=== PATIENT | female | born 1995 | race Caucasian/White ===

== ENCOUNTER → 2022-09-17 | Outpatient (REF) | LOC: M LABSMTC 10:31 | PROVIDERS: ATTEND Family Medicine | DX: Z11.52 Encounter for screening for COVID-19 (principal) ==

== ENCOUNTER 2022-11-30 00:54 | Day surgery (SDC) | payer OTHER, SELFPAY ==
[2022-11-30] VITALS (10 sets, daily range): BP systolic 97–126; BP diastolic 63–75
[~2022-11-30] VITALS: Ht 165.1 cm; Wt 110.6 kg
[2022-11-30] MEDS ORDERED: MORPHINE 4 MG/ML 1ML VIAL IV PRN (01:05)
[2022-11-30] MEDS ORDERED: NORCO, ANEXSIA 5/325MG TABLET (HYDROcodone/ACETAMINOPHEN) PO PRN (01:05)
[2022-11-30] MEDS ORDERED: ONDANSETRON 4MG 2ML VIAL IV PRN ×2 (01:05→12:45)
[2022-11-30] MEDS ORDERED: HOME MED LIST COMPLETE! XX SCH (01:40)
[2022-11-30] MEDS: NS 1,000 ML IV SCH ×3 (01:48→17:05)
[2022-11-30] MEDS: NORCO, ANEXSIA 5/325MG TABLET (HYDROcodone/ACETAMINOPHEN) PO PRN ×3 (09:44→22:29)
[2022-11-30] MEDS ORDERED: ROCURONIUM BROMIDE 50MG/5ML VIAL As Ordered ONE (10:27)
[2022-11-30] MEDS ORDERED: LIDOCAINE 2% 100MG/5ML SDV (FOR ANES.) As Ordered ONE (10:27)
[2022-11-30] MEDS ORDERED: SUGAMMADEX SODIUM 500 MG/5 ML VIAL (BRIDION) As Ordered ONE (10:28)
[2022-11-30] MEDS ORDERED: ONDANSETRON 4MG 2ML VIAL As Ordered ONE (10:28)
[2022-11-30] MEDS ORDERED: KETOROLAC 60MG 2ML VIAL As Ordered ONE (10:28)
[2022-11-30] MEDS ORDERED: ACETAMINOPHEN 1000MG 100ML IV BAG As Ordered ONE (10:28)
[2022-11-30] MEDS ORDERED: propofoL 200 MG/20 ML VIAL As Ordered ONE (10:28)
[2022-11-30] MEDS ORDERED: fentaNYL 100 MCG/2 ML INJECTION As Ordered ONE (10:30)
[2022-11-30] MEDS ORDERED: MIDAZOLAM INJ 2MG/2ML VIAL As Ordered ONE (10:30)
[2022-11-30] MEDS ORDERED: BUPIVACAINE HCL 0.25% 30ML VIAL As Ordered ONE (10:37)
[2022-11-30] MEDS ORDERED: LIDOCAINE 1% SDV 30ML VIAL As Ordered ONE (10:37)
[2022-11-30] MEDS ORDERED: ZOSYN 3.375GM VIAL As Ordered ONE (11:06)
[2022-11-30] MEDS ORDERED: MEPERIDINE 25 MG/ML 1ML VIAL IV PRN (12:45)
[2022-11-30] MEDS ORDERED: LR 1,000 ML IV SCH (12:45)
[2022-11-30] MEDS ORDERED: PERCOCET 5MG/325MG TAB PO PRN (12:45)
[2022-11-30] MEDS ORDERED: fentaNYL 100 MCG/2 ML INJECTION IV PRN (12:45)
[2022-11-30] MEDS ORDERED: METOCLOPRAMIDE INJ 10MG/2ML VIAL IV PRN (12:50)
[2022-11-30] MEDS: metroNIDAZOLE (FLAGYL) 500MG TABLET PO SCH ×2 (13:27→21:27)
[2022-11-30] MEDS: LevoFLOXacin 750 MG TABLET PO SCH (13:27)
[2022-12-01] MEDS ORDERED: UNRESOLVED CLARIFICATION ENTRY XX SCH (00:01)
[2022-12-01] MEDS: NORCO, ANEXSIA 5/325MG TABLET (HYDROcodone/ACETAMINOPHEN) PO PRN (05:47)
[2022-12-01] MEDS: LevoFLOXacin 750 MG TABLET PO SCH (05:47)
[2022-12-01] MEDS: metroNIDAZOLE (FLAGYL) 500MG TABLET PO SCH (05:47)
[2022-12-01 06:00] VITALS: BP 113/74
[2022-12-01 06:47] LABS: BASO % 0.3 % (0.0-1.0); EOS % 0.3 % (0.0-3.0); HEMATOCRIT 34.2 % (36.0-47.0); HEMOGLOBIN 10.8 g/dl (12.0-15.5); MEAN CORPUSCULAR HEMOGLOBIN 29.1 pg (27.0-33.0); MEAN CORPUSCULAR HGB CONC 31.6 g/dl (32.0-36.5); MEAN CORPUSCULAR VOLUME 92.2 fl (80.0-96.0); MONO # 0.7 10^3/uL (0.0-0.8); MONO % 5.8 % (2.0-8.0); NEUTROPHILS # 8.9 10^3/uL (1.5-8.5); PLATELET COUNT, AUTOMATED 281 10^3/uL (150-450); RED BLOOD COUNT 3.71 10^6/uL (4.00-5.40); WHITE BLOOD COUNT 11.7 10^3/uL (4.0-10.0)
[2022-12-01 07:09] LABS: BLOOD UREA NITROGEN 9 MG/DL (9-23); CALCIUM LEVEL 7.9 MG/DL (8.5-10.1); CARBON DIOXIDE LEVEL 25 MMOL/L (20-31); CHLORIDE LEVEL 108 MMOL/L (98-107); CREATININE FOR GFR 0.67 MG/DL (0.55-1.30); GLOMERULAR FILTRATION RATE > 60.0 (>60); GLUCOSE, FASTING 93 MG/DL (60-100); POTASSIUM SERUM 3.8 MMOL/L (3.5-5.1); SODIUM LEVEL 142 MMOL/L (136-145)
[2022-12-01] MEDS ORDERED: METR-265 PO (13:00)
[2022-12-01] MEDS ORDERED: HYDR-3715 PO (13:00)
[2022-12-01] MEDS ORDERED: LEVO1TAB40 PO (13:00)
== END 2022-12-01 13:45 | disposition home or self-care (01) ==
LOC: M SDC 00:54 → M MS5PR 00:55 → M SDC 01:01
PROVIDERS: ATTEND Surgery
DX: K35.891 Other acute appendicitis without perforation, with gangrene (principal); K35.32 Acute appendicitis with perforation, localized peritonitis, and gangrene, without abscess; E66.9 Obesity, unspecified
CPT/HCPCS: 36415; 44970; 80048; 85025; 88304; J1100; J1885; J2250; J2405; J2543; J3010; S0020

== ENCOUNTER → 2022-12-22 | Outpatient (CLI) | payer OTHER ==
[~2022-12-22] MED LIST: HYDR-3715 PO; LEVO1TAB40 PO; METR-265 PO
[2022-12-22 14:52] LABS: BASO # 0.1 10^3/uL (0.0-0.2); BASO % 0.4 % (0.0-1.0); EOS # 0.1 10^3/uL (0.0-0.5); EOS % 0.9 % (0.0-3.0); HEMOGLOBIN 12.1 g/dl (12.0-15.5); LYMPH # 3.6 10^3/uL (1.5-5.0); LYMPH % 31.8 % (24.0-44.0); MEAN CORPUSCULAR HEMOGLOBIN 29.7 pg (27.0-33.0); MEAN CORPUSCULAR HGB CONC 32.7 g/dl (32.0-36.5); MEAN CORPUSCULAR VOLUME 90.7 fl (80.0-96.0); MONO # 0.7 10^3/uL (0.0-0.8); MONO % 6.5 % (2.0-8.0); NEUTROPHILS # 6.7 10^3/uL (1.5-8.5); NEUTROPHILS % 60.1 % (36.0-66.0); PLATELET COUNT, AUTOMATED 381 10^3/uL (150-450); RED BLOOD COUNT 4.08 10^6/uL (4.00-5.40); WHITE BLOOD COUNT 11.2 10^3/uL (4.0-10.0)
[2022-12-22 15:17] LABS: ALBUMIN 3.7 G/DL (3.2-5.2); ALKALINE PHOSPHATASE 89 U/L (46-116); ALT/SGPT 36 U/L (7.0-40); AST/SGOT 18 U/L (<34); BILIRUBIN,TOTAL 0.3 MG/DL (0.3-1.2); BLOOD UREA NITROGEN 12 MG/DL (9-23); CALCIUM LEVEL 9.2 MG/DL (8.5-10.1); CARBON DIOXIDE LEVEL 27 MMOL/L (20-31); CHLORIDE LEVEL 107 MMOL/L (98-107); CREATININE FOR GFR 0.72 MG/DL (0.55-1.30); GLOMERULAR FILTRATION RATE > 60.0 (>60); GLUCOSE, FASTING 90 MG/DL (60-100); SODIUM LEVEL 139 MMOL/L (136-145); TOTAL PROTEIN 7.2 G/DL (5.7-8.2)
== END ==
LOC: M LAB 14:29
PROVIDERS: ATTEND Physician Assistant
DX: K35.30 Acute appendicitis with localized peritonitis, without perforation or gangrene (principal)

== ENCOUNTER → 2022-12-29 | Outpatient (REF) | payer OTHER | LOC: M SFHCWAGY 17:29 | PROVIDERS: ATTEND Nurse Practitioner Family | DX: Z12.4 Encounter for screening for malignant neoplasm of cervix (principal) ==

== ENCOUNTER → 2023-12-31 | Outpatient (REF) | payer OTHER | LOC: M SFHCWAGY 17:18 | PROVIDERS: ATTEND Nurse Practitioner Family | DX: Z12.4 Encounter for screening for malignant neoplasm of cervix (principal) | CPT/HCPCS: 87624; G0123 ==

== ENCOUNTER → 2024-06-29 | Outpatient (CLI) | payer OTHER ==
[2024-06-29 18:57] LABS: HEMOGLOBIN A1c 4.9 % (4.0-6.0)
[2024-06-29 19:03] LABS: ALBUMIN 3.7 G/DL (3.2-5.2); ALKALINE PHOSPHATASE 93 U/L (35-104); ALT/SGPT 25 U/L (7.0-40); AST/SGOT < 8 U/L (<34); BILIRUBIN,TOTAL 0.6 MG/DL (0.3-1.2); BLOOD UREA NITROGEN 11 MG/DL (9-23); CALCIUM LEVEL 9.3 MG/DL (8.5-10.1); CARBON DIOXIDE LEVEL 23 MMOL/L (20-31); CHLORIDE LEVEL 106 MMOL/L (98-107); CREATININE FOR GFR 0.58 MG/DL (0.55-1.30); GLOMERULAR FILTRATION RATE > 60.0 (>60); GLUCOSE, FASTING 83 MG/DL (60-100); POTASSIUM SERUM 3.9 MMOL/L (3.5-5.1); SODIUM LEVEL 136 MMOL/L (136-145); TOTAL PROTEIN 7.5 G/DL (5.7-8.2)
[2024-06-29 19:06] LABS: THYROID STIMULATING HORMONE 1.993 uIU/ML (0.55-4.78)
[2024-06-29 19:07] LABS: FREE T4 1.16 NG/DL (0.89-1.76); PROLACTIN 13.66 NG/ML
== END ==
LOC: M PLALAB 15:24
PROVIDERS: ATTEND Nurse Practitioner Family
DX: N92.0 Excessive and frequent menstruation with regular cycle (principal)

== ENCOUNTER → 2024-07-04 | Outpatient (CLI) | payer OTHER | LOC: M RAD 11:03 | PROVIDERS: ATTEND Nurse Practitioner Family | DX: R10.12 Left upper quadrant pain (principal); R30.0 Dysuria ==

== ENCOUNTER 2024-08-31 06:09 | Observation (INO) | payer OTHER ==
[2024-08-31] VITALS (9 sets, daily range): BP systolic 81–119; BP diastolic 30–62; TEMP 96.6–99.3; O2SAT 93–100
[~2024-08-31] VITALS: Ht 167.6 cm; Wt 110.2 kg
[~2024-08-31 06:09] MED LIST changes: +COQ150CH PO; +PRENTAB9 PO; +PROBCAP14 PO
[2024-08-31] MEDS ORDERED: NS (Normal Saline) 0.9% 1,000 ML IV SCH (06:30)
[2024-08-31] MEDS ORDERED: propofoL 200 MG/20 ML VIAL As Ordered ONE (06:51)
[2024-08-31] MEDS ORDERED: SUGAMMADEX SODIUM 500 MG/5 ML VIAL (BRIDION) As Ordered ONE (06:51)
[2024-08-31] MEDS ORDERED: ROCURONIUM BROMIDE 50MG/5ML VIAL As Ordered ONE (06:51)
[2024-08-31] MEDS ORDERED: LIDOCAINE 2% 100MG/5ML SDV (FOR ANES.) As Ordered ONE (06:51)
[2024-08-31] MEDS ORDERED: ONDANSETRON 4MG 2ML VIAL As Ordered ONE (06:51)
[2024-08-31] MEDS ORDERED: MIDAZOLAM INJ 2MG/2ML VIAL As Ordered ONE (06:52)
[2024-08-31] MEDS ORDERED: fentaNYL 100 MCG/2 ML INJECTION As Ordered ONE (06:52)
[2024-08-31] MEDS ORDERED: HYDROmorphone HCL 2MG/ML 1ML VIAL As Ordered ONE (06:52)
[2024-08-31] MEDS ORDERED: ATROPINE SULF 0.4 MG/ML 1ML VIAL As Ordered ONE (06:56)
[2024-08-31 07:17] LABS: HEMATOCRIT 37.7 % (36.0-47.0); HEMOGLOBIN 12.1 g/dl (12.0-15.5); MEAN CORPUSCULAR HEMOGLOBIN 29.2 pg (27.0-33.0); MEAN CORPUSCULAR HGB CONC 32.1 g/dl (32.0-36.5); MEAN CORPUSCULAR VOLUME 91.1 fl (80.0-96.0); PLATELET COUNT, AUTOMATED 353 10^3/uL (150-450); RED BLOOD COUNT 4.14 10^6/uL (4.00-5.40); WHITE BLOOD COUNT 8.7 10^3/uL (4.0-10.0)
[2024-08-31] MEDS: SCOPOLAMINE 1MG TRANSDERMAL PATCH TOP ONE (07:23)
[2024-08-31] MEDS: SCOPOLAMINE 1MG TRANSDERMAL PATCH As Ordered ONE (07:30)
[2024-08-31] MEDS: ceFAZolin SOD 2 GM in IV 1 EA IV ONE (07:50)
[2024-08-31] MEDS ORDERED: KETOROLAC 60MG 2ML VIAL As Ordered ONE (07:54)
[2024-08-31] MEDS ORDERED: ACETAMINOPHEN 1000MG/100ML IV BAG As Ordered ONE (07:54)
[2024-08-31] MEDS ORDERED: PHENYLephrine 500MCG 5ML (100MCG/ML) SYRINGE As Ordered ONE (09:48)
[2024-08-31] MEDS: METHYLENE BLUE 0.5% (5MG/ML) 10 ML AMP (PROVAYBLUE) As Ordered ONE (09:55)
[2024-08-31] MEDS ORDERED: MEPERIDINE 50 MG/ML 1ML VIAL As Ordered ONE (10:32)
[2024-08-31] MEDS ORDERED: fentaNYL 100 MCG/2 ML INJECTION IV PRN (10:40)
[2024-08-31] MEDS ORDERED: MEPERIDINE 25 MG/ML 1ML VIAL IV PRN (10:40)
[2024-08-31] MEDS ORDERED: GLYCOPYRROLATE INJ 0.2 MG/ML 2 ML VIAL As Ordered ONE (11:26)
[2024-08-31] MEDS: ONDANSETRON 4MG 2ML VIAL IV PRN (11:42)
[2024-08-31] MEDS: oxyCODONE 5MG TAB PO PRN (11:43)
[2024-08-31] MEDS ORDERED: ESMOLOL INJ 100MG/10ML VIAL As Ordered ONE (11:44)
[2024-08-31] MEDS ORDERED: PERCOCET 5MG/325MG TAB PO PRN ×2 (13:00)
[2024-08-31] MEDS ORDERED: ONDANSETRON 4MG 2ML VIAL IV PRN (13:00)
[2024-08-31] MEDS: KETOROLAC 30 MG/ML 1ML VIAL IV SCH (13:10)
[2024-08-31] MEDS: LR 1,000 ML IV SCH (13:11)
[2024-08-31] MEDS: DOCUSATE SODIUM 100MG CAPSULE PO SCH (20:41)
[2024-09-01 02:10] VITALS: BP 111/57; TEMP 99.2; O2SAT 97
[2024-09-01 05:59] VITALS: BP 116/69; TEMP 99.5; O2SAT 97
[2024-09-01 06:43] LABS: BASO % 0.2 % (0.0-1.0); EOS % 0.1 % (0.0-3.0); HEMATOCRIT 30.1 % (36.0-47.0); LYMPH # 2.4 10^3/uL (1.5-5.0); LYMPH % 19.7 % (24.0-44.0); MEAN CORPUSCULAR HEMOGLOBIN 29.7 pg (27.0-33.0); MEAN CORPUSCULAR HGB CONC 32.2 g/dl (32.0-36.5); MONO # 0.6 10^3/uL (0.0-0.8); MONO % 4.7 % (2.0-8.0); NEUTROPHILS # 9.2 10^3/uL (1.5-8.5); PLATELET COUNT, AUTOMATED 318 10^3/uL (150-450); RED BLOOD COUNT 3.27 10^6/uL (4.00-5.40); WHITE BLOOD COUNT 12.2 10^3/uL (4.0-10.0)
[2024-09-01 06:59] LABS: HEMOGLOBIN 9.7 g/dl (12.0-15.5)
[2024-09-01] MEDS ORDERED: IBUP80TA PO (12:22)
[2024-09-01] MEDS ORDERED: PERCOCET PO (12:22)
[2024-09-01] MEDS ORDERED: COLA100C5 PO (12:22)
[2024-09-01] MEDS: IBUPROFEN 800 MG TAB PO SCH (13:12)
[2024-09-01] MEDS ORDERED: PERC5TAB12 PO (17:37)
== END 2024-09-01 13:20 | disposition home or self-care (01) ==
LOC: M SDC 06:09 → M RR INP 06:10 → M OBS 12:10
PROVIDERS: ADMIT Obstetrics & Gynecology; ATTEND Obstetrics & Gynecology
DX: N80.101 Endometriosis of right ovary, unspecified depth (principal); N83.12 Corpus luteum cyst of left ovary; N83.8 Other noninflammatory disorders of ovary, fallopian tube and broad ligament; N97.1 Female infertility of tubal origin; N73.6 Female pelvic peritoneal adhesions (postinfective)
CPT/HCPCS: 36415; 58350; 58662; 81025; 85025; 85027; 86850; 86900; 86901; 88305; 96374; 96376; J0131; J0665; J0690; J1100; J1171; J1596; J1805; J1885; J2175; J2250; J2371; J2405; J3010; Q9968; S2900

== ENCOUNTER → 2024-10-07 | Outpatient (CLI) | payer OTHER ==
[~2024-10-07] MED LIST changes: +COLA100C5 PO; +IBUP80TA PO; +PERC5TAB12 PO; +PERCOCET PO
[2024-10-07 11:49] LABS: HEMATOCRIT 38.6 % (36.0-47.0); HEMOGLOBIN 12.2 g/dl (12.0-15.5); MEAN CORPUSCULAR HEMOGLOBIN 29.3 pg (27.0-33.0); MEAN CORPUSCULAR HGB CONC 31.6 g/dl (32.0-36.5); MEAN CORPUSCULAR VOLUME 92.6 fl (80.0-96.0); PLATELET COUNT, AUTOMATED 361 10^3/uL (150-450); RED BLOOD COUNT 4.17 10^6/uL (4.00-5.40); WHITE BLOOD COUNT 7.8 10^3/uL (4.0-10.0)
[2024-10-07 12:20] LABS: ALBUMIN 4.1 G/DL (3.2-5.2); ALKALINE PHOSPHATASE 92 U/L (35-104); ALT/SGPT 30 U/L (7.0-40); AST/SGOT 14 U/L (<34); BILIRUBIN,TOTAL 0.3 MG/DL (0.3-1.2); BLOOD UREA NITROGEN 12 MG/DL (9-23); CALCIUM LEVEL 9.8 MG/DL (8.5-10.1); CARBON DIOXIDE LEVEL 26 MMOL/L (20-31); CHLORIDE LEVEL 104 MMOL/L (98-107); CREATININE FOR GFR 0.64 MG/DL (0.55-1.30); GLOMERULAR FILTRATION RATE > 60.0 (>60); GLUCOSE, FASTING 83 MG/DL (60-100); POTASSIUM SERUM 4.3 MMOL/L (3.5-5.1); SODIUM LEVEL 140 MMOL/L (136-145); TOTAL PROTEIN 7.8 G/DL (5.7-8.2)
[2024-10-07 12:21] LABS: FREE THYROXINE INDEX 2.5 % (1.3-4.8); PROLACTIN 8.98 NG/ML; T UPTAKE 31.1 % (22.5-37.0); THYROID STIMULATING HORMONE 2.348 uIU/ML (0.55-4.78)
[2024-10-07 12:22] LABS: TOTAL 25(OH) VITAMIN D 32.7 NG/ML (20.0-100.0)
[2024-10-07 12:27] LABS: HEMOGLOBIN A1c 4.7 % (4.0-6.0)
[2024-10-07 12:39] LABS: HEPATITIS B SURFACE ANTIGEN NEGATIVE (NEGATIVE)
[2024-10-07 12:52] LABS: HIV 1&2 SCREEN NEGATIVE (NEGATIVE)
[2024-10-07 13:00] LABS: HEPATITIS C VIRUS ABY INDEX 0.11 INDEX (<0.8)
[2024-10-10 13:47] LABS: HERPES ZOSTER, VARICELLA IgG 4.92 S/CO (>=1.00)
== END ==
LOC: M PLALAB 08:24
PROVIDERS: ATTEND Obstetrics & Gynecology
DX: Z31.83 Encounter for assisted reproductive fertility procedure cycle (principal)

== ENCOUNTER → 2025-05-31 | Outpatient (CLI) | payer OTHER ==
[2025-05-31 07:26] LABS: HCG, SERUM QUANTITATIVE 200.4 MIU/ML (<4.2)
[2025-05-31 07:30] LABS: PROGESTERONE 21.42 NG/ML
[2025-05-31 07:31] LABS: ESTRADIOL 365.9 PG/ML
== END ==
LOC: M LAB 06:18
PROVIDERS: ATTEND Obstetrics & Gynecology Reproductive Endocrinology
DX: Z32.01 Encounter for pregnancy test, result positive (principal)

== ENCOUNTER → 2025-06-02 | Outpatient (CLI) | payer OTHER ==
[2025-06-02 10:42] LABS: HCG, SERUM QUANTITATIVE 84.5 MIU/ML (<4.2)
[2025-06-02 10:46] LABS: ESTRADIOL 344.8 PG/ML; PROGESTERONE 13.06 NG/ML
== END ==
LOC: M LAB 09:07
PROVIDERS: ATTEND Obstetrics & Gynecology Reproductive Endocrinology
DX: Z32.01 Encounter for pregnancy test, result positive (principal)

== ENCOUNTER → 2025-06-28 | Outpatient (CLI) | payer OTHER ==
[2025-06-28 07:21] LABS: ESTRADIOL 496.0 PG/ML; PROGESTERONE 9.98 NG/ML
== END ==
LOC: M LAB 06:09
PROVIDERS: ATTEND Obstetrics & Gynecology Reproductive Endocrinology
DX: Z31.49 Encounter for other procreative investigation and testing (principal)

== ENCOUNTER → 2025-07-03 | Outpatient (CLI) | payer OTHER ==
[2025-07-03 07:05] LABS: HCG, SERUM QUANTITATIVE < 2.6 MIU/ML (<4.2)
[2025-07-03 07:09] LABS: PROGESTERONE 18.44 NG/ML
== END ==
LOC: M LAB 06:10
PROVIDERS: ATTEND Obstetrics & Gynecology Reproductive Endocrinology
DX: Z32.00 Encounter for pregnancy test, result unknown (principal)